=== PATIENT | male | born 1985 | race Caucasian/White ===

== ENCOUNTER 2019-12-23 20:54 | Emergency (ER) | payer SELFPAY ==
[~2019-12-23] VITALS: Ht 185.4 cm; Wt 74.8 kg
[2019-12-23] MEDS ORDERED: MORPHINE SULFATE 4 MG/ML SYR/VIAL IV ONE ×2 (21:30→23:15)
[2019-12-23] MEDS ORDERED: ONDANSETRON HCL 4 MG/2 ML VIAL IV ONE (21:30)
[2019-12-24] VITALS: BP 116/78
== END 2019-12-24 01:50 | disposition home or self-care (01) ==
LOC: ER 21:01 → EDBD 21:01 → ER 12-24 01:50
DX: S82.241A Displaced spiral fracture of shaft of right tibia, initial encounter for closed fracture (principal); S82.441A Displaced spiral fracture of shaft of right fibula, initial encounter for closed fracture; F12.10 Cannabis abuse, uncomplicated; V00.311A Fall from snowboard, initial encounter; Y93.23 Activity, snow (alpine) (downhill) skiing, snowboarding, sledding, tobogganing and snow tubing; Y99.8 Other external cause status; Y92.89 Other specified places as the place of occurrence of the external cause
CPT/HCPCS: 29515; 73590; 96374; 96375; 96376; 99283; J2270; J2405